=== PATIENT | female | born 1980 | race Caucasian/White ===

== ENCOUNTER 2017-09-27 16:32 | Emergency (ER) | payer MEDICAID, OTHER ==
[~2017-09-27] VITALS: Ht 165.1 cm; Wt 88.9 kg
[~2017-09-27 16:32] MED LIST: NA S5DRO OP; NO HOME MEDS
[2017-09-27 18:22] LABS: CLARITY,URINE CLEAR (Clear); COLOR,URINE YELLOW (Yellow); GLUCOSE, URINE NEGATIVE (Neg); KETONES,URINE NEGATIVE (Neg); LEUKOCYTE ESTERASE ,URINE SMALL (Neg); NITRITES, URINE NEGATIVE (Neg); OCCULT BLOOD,URINE NEGATIVE (Neg); PH,URINE 5.5 (4.8-8.0); PROTEIN,URINE NEGATIVE (Neg); UROBILINOGEN,URINE 0.2 E.U/dL (0.2-1.0)
[2017-09-27 18:23] LABS: UA COLLECTION TYPE CLN CATCH MIDSTREAM
[2017-09-27 18:24] LABS: URINE HCG NEGATIVE (NEG)
[2017-09-27 18:28] LABS: BACTERIA,URINE FEW /HPF (Neg); RBC,URINE 0-2 /HPF (0-2); SQUAMOUS EPITHELIAL CELL,UR MODERATE /LPF (FEW); WBC,URINE 0-4 /HPF (0-4)
[2017-09-27] MEDS ORDERED: acetaminophen 325mg tablet PO ONE (20:45)
[2017-09-27 20:54] VITALS: BP 105/70
== END 2017-09-27 20:55 | disposition home or self-care (01) ==
LOC: ER 16:33
DX: G43.909 Migraine, unspecified, not intractable, without status migrainosus (principal)
CPT/HCPCS: 70450; 81001; 81025; 87088; 99285

== ENCOUNTER 2021-01-06 09:08 | Day surgery (SDC) | payer MEDICAID ==
[~2021-01-06] VITALS: Ht 165.1 cm; Wt 79.5 kg
[2021-01-06] MEDS ORDERED: MIDAZolam 1 MG/ML 5ML VIAL ONE (09:17)
[2021-01-06] MEDS ORDERED: fentaNYL/PF 50MCG/1 ML 2ML syringe ONE (09:17)
[2021-01-06 09:20] VITALS: BP_SYST 102; BP_SYST 103; BP_DIAS 63
[2021-01-06 11:10] VITALS: BP_SYST 103; BP_DIAS 59; BP_DIAS 63
[2021-01-06 11:20] VITALS: BP 104/64
[2021-01-06 11:30] VITALS: BP 103/62
[2021-01-06 11:35] VITALS: BP 106/66
== END 2021-01-06 12:00 | disposition home or self-care (01) ==
LOC: GI LAB 09:08
PROVIDERS: ATTEND Internal Medicine Gastroenterology
DX: K62.89 Other specified diseases of anus and rectum (principal); K92.1 Melena; K63.5 Polyp of colon; K62.1 Rectal polyp; K64.8 Other hemorrhoids; Z80.0 Family history of malignant neoplasm of digestive organs
CPT/HCPCS: 45380; 45385; 99152; 99153; C1773; J2250; J3010; J7040; A4620

== ENCOUNTER 2021-08-04 11:25 | Emergency (ER) | payer MEDICAID ==
[~2021-08-04] VITALS: Ht 165.1 cm; Wt 77.3 kg
[~2021-08-04 11:25] MED LIST changes: -NA S5DRO OP
[2021-08-04 12:06] VITALS: BP 128/66
[2021-08-04 13:12] LABS: BASOPHILS # (AUTO) 0.1 X10'3 (0-0.2); BASOPHILS % (AUTO) 0.7 % (0-1); EOSINOPHILS # (AUTO) 0.1 X10'3 (0-0.9); EOSINOPHILS % (AUTO) 1.7 % (0-6); HEMATOCRIT 41.5 % (35.0-45.0); HEMOGLOBIN 14.3 g/dl (12.0-16.0); LYMPHOCYTES # (AUTO) 1.9 X10'3 (1.1-4.8); LYMPHOCYTES % (AUTO) 24.7 % (21-51); MEAN CORPUSCULAR HEMOGLOBIN 30.9 PG (27.0-31.0); MEAN CORPUSCULAR HGB CONC 34.4 g/dL (33.0-36.5); MEAN CORPUSCULAR VOLUME 89.7 FL (78-98); MEAN PLATELET VOLUME 8.2 FL (7.4-10.4); MONOCYTES # (AUTO) 0.6 X10'3 (0-0.9); MONOCYTES % (AUTO) 7.5 % (2-12); NEUTROPHILS # (AUTO) 5.1 X10'3 (1.8-7.7); NEUTROPHILS % (AUTO) 65.4 % (42-75); PLATELET COUNT 256 X10'3 (140-440); RED BLOOD COUNT 4.63 X10'6 (4.20-5.60); RED CELL DISTRIBUTION WIDTH 13.9 % (11.5-14.5); WHITE BLOOD COUNT 7.7 X10'3 (4.5-11.0)
[2021-08-04 13:20] LABS: ALANINE AMINOTRANSFERASE 18 U/L (12-78); ALBUMIN 3.8 G/DL (3.4-5.0); ALBUMIN/GLOBULIN RATIO 1.1 (1.1-1.5); ALKALINE PHOSPHATASE 47 IU/L (46-116); ANION GAP 7 (8-16); ASPARTATE AMINO TRANSFERASE 19 U/L (10-37); BILIRUBIN,TOTAL 0.6 MG/DL (0.1-1.0); BLOOD UREA NITROGEN 17 MG/DL (7-18); BUN/CREATININE RATIO 17.9 (6.6-38.0); CHLORIDE 109 MMOL/L (99-107); CREATININE 0.95 MG/DL (0.40-0.90); GLUCOSE 94 MG/DL (70-104); LIPASE 165 U/L (73-393); POTASSIUM 4.3 MMOL/L (3.5-5.1); SODIUM 144 MMOL/L (135-145); TOTAL CARBON DIOXIDE 27.7 MMOL/L (24-32); TOTAL PROTEIN 7.4 G/DL (6.4-8.2); eGFR 65 ML/MIN
== END 2021-08-04 21:32 | disposition left against medical advice (07) ==
LOC: ER 11:31
DX: L65.9 Nonscarring hair loss, unspecified (principal); Z53.21 Procedure and treatment not carried out due to patient leaving prior to being seen by health care provider
CPT/HCPCS: 36415; 80053; 83690; 85025

== ENCOUNTER 2022-10-25 06:30 | Emergency (ER) | payer MEDICAID ==
[~2022-10-25] VITALS: Ht 165.1 cm; Wt 80.0 kg
[2022-10-25 06:32] VITALS: BP 118/62
[2022-10-25] MEDS ORDERED: bacitracin 15gm ointment TP ONE (07:00)
[2022-10-25] MEDS ORDERED: ondansetron 4mg rapidly disintigrating tab PO ONE (07:00)
[2022-10-25] MEDS ORDERED: sulfamethoxazole/trimethoprim DS (800/160mg) tablet PO ONE (07:00)
[2022-10-25] MEDS ORDERED: SULF1TAB49 PO (07:01)
== END 2022-10-25 07:13 | disposition home or self-care (01) ==
LOC: ER 06:32
DX: L03.113 Cellulitis of right upper limb (principal); Z79.899 Other long term (current) drug therapy
CPT/HCPCS: 99284

== ENCOUNTER 2023-01-13 04:11 | Emergency (ER) | payer MEDICAID ==
[~2023-01-13] VITALS: Ht 165.1 cm; Wt 80.0 kg
[2023-01-13 04:14] VITALS: BP 114/72
[2023-01-13] MEDS ORDERED: ONDA4TAB12 PO (04:46)
[2023-01-13] MEDS ORDERED: CEPH-585 PO (04:46)
[2023-01-13] MEDS ORDERED: ondansetron 4mg rapidly disintigrating tab PO ONE (04:50)
== END 2023-01-13 05:16 | disposition home or self-care (01) ==
LOC: ER 04:12
DX: L03.211 Cellulitis of face (principal); T78.3XXA Angioneurotic edema, initial encounter
CPT/HCPCS: 10060; 99283

== ENCOUNTER 2023-02-02 07:28 | Outpatient (CLI) | payer BC, MEDICAID ==
[~2023-02-02 07:28] MED LIST changes: +CEPH-585 PO; +ONDA4TAB12 PO
== END 2023-02-02 23:59 | disposition home or self-care (01) ==
LOC: CARD DIAG 07:28
PROVIDERS: ATTEND Internal Medicine Interventional Cardiology
DX: I34.0 Nonrheumatic mitral (valve) insufficiency (principal)
CPT/HCPCS: 93306